=== PATIENT | female | born 1975 ===

== ENCOUNTER 2021-09-27 11:03 | Day surgery (SDC) | payer OTHER ==
--- NOTE | 2021-09-26 10:50 | Anesthesia Consultation ---
Anesthesia Consult and Med Hx Date of service: 09/26/21 - Airway Anesthetic Teeth Evaluation: Good ROM Head & Neck: Adequate Mental/Hyoid Distance: Adequate Mallampati Class: Class II Intubation Access Assessment: Good - Pulmonary Exam CTA: Yes - Cardiac Exam Cardiac Exam: RRR - Pre-Operative Health Status ASA Pre-Surgery Classification: ASA1 Proposed Anesthetic Plan: General - Central Nervous System Hx Psychiatric Problems: No - Other Systems Hx Alcohol Use: Yes (Occas) Hx Cancer: No
[2021-09-26 11:06] LABS: Basophils % (Auto) 0.8 % (0.0-1.8); Eosinophils # (Auto) 0.1 K/mm3 (0.0-0.4); Eosinophils % (Auto) 2.2 % (0.0-4.3); Hematocrit 41.5 % (30.3-42.9); Hemoglobin 14.1 gm/dl (10.1-14.3); Lymphocytes # (Auto) 1.2 K/mm3 (1.2-5.4); Lymphocytes % (Auto) 26.6 % (13.4-35.0); Mean Corpuscular HGB Conc 34 % (30-34); Mean Corpuscular Volume 91 fl (79-97); Monocytes # (Auto) 0.3 K/mm3 (0.0-0.8); Monocytes % (Auto) 6.6 % (0.0-7.3); Platelet Count 293 K/mm3 (140-440); Red Blood Count 4.55 M/mm3 (3.65-5.03); Red Cell Distribution Width 12.4 % (13.2-15.2)
--- NOTE | 2021-09-27 09:44 | Anesthesia Day of Surgery ---
Anesthesia Day of Surgery - Day of Surgery Patient Examined: Yes Patient H&P Reviewed: Yes Patient is NPO: Yes
[~2021-09-27 11:03] MED LIST: ACETAMINOPHEN 500 MG TAB PO SCH; BUPIVACAINE/PF (0.5%) 5 MG/1 ML 10 ML VIAL INFILTRATI NR; CELECOXIB 200 MG CAP PO NR; GABAPENTIN 300 MG CAP PO NR; HYDROmorphone 1 MG/1 ML INJ IV PRN; HYDROmorphone 1 MG/1 ML INJ ONE; LACTATED RINGERS 1,000 ML IV SCH; LACTATED RINGERS 1000 ML IV SOLN IV ONE; LIDOCAINE MPF (2%) 20 MG/1 ML VIAL 5 ML ONE; MIDAZOLAM 2 MG/2 ML INJ IV NR; ONDANSETRON 4 MG/2 ML INJ IV PRN; ROCURONIUM 50 MG/5 ML INJ IV ONE; SCOPOLAMINE TRANSDERMAL PATCH 72 HR TD NR; ceFAZolin/STERILE WATER 2 GM/20 ML SYRINGE IV NR; ceFAZolin/Water 2 GM/20 ML 2 GM/20 ML SYRINGE IV ONE; dexAMETHasone 20 MG/5 ML VIAL ONE; fentaNYL 100 MCG/2 ML INJ IV NR; methOCARBAMOL 1,000 MG in SODIUM CHLORIDE 0.9% 250ML 250 ML IV SCH; propofoL 200 MG/20 ML VIAL IV ONE
[2021-09-27] MEDS ORDERED: WATER FOR IRRIG STERILE 2000 ML IR ONE (11:06)
[2021-09-27] MEDS ORDERED: SODIUM CHLORIDE 0.9% IRR 1,500 ML BOTTLE IR ONE (11:06)
--- NOTE | 2021-09-27 12:02 | Procedure Note ---
Date of procedure: 09/27/21 Pre-op diagnosis: intraabdominal adhesions Post-op diagnosis: same Procedure: laparoscopic lysis of adhesions Findings: Intraaoperative consult called by Dr. Noel. Patient with history of lower midline incision for abdominal surgery. Patient scheduled for laparoscopic hysterectomy. Patient with intraabdominal adhesions. Consult called to assist with lysis of adhesions. 12mm Rodrigues umbilical port and RLQ 5 mm port already placed. Omental adhesions identified to anterior abdominal wall in mid and lower abdomen. I performed lysis of adhesions using lap enseal device. After LUANN completed, omentum examined and hemostasis ensured. No injury was identified to the intraabdominal organs. Dr. Noel resumed his portion of the case at this time. Anesthesia: GRACE Surgeon: PRABHU WHITNEY Estimated blood loss: minimal Condition: stable Disposition: no change
[2021-09-27] MEDS ORDERED: ROCURONIUM 50 MG/5 ML INJ IV ONE (12:13)
[2021-09-27] MEDS ORDERED: LACTATED RINGERS 1,000 ML ONE (12:15)
[2021-09-27] MEDS ORDERED: NEOSTIGMINE 10MG/10 ML INJ MDV ONE (13:11)
[2021-09-27] MEDS ORDERED: GLYCOPYRROLATE 0.4 MG/2 ML INJ ONE (13:11)
[2021-09-27] MEDS ORDERED: ONDANSETRON 4 MG/2 ML INJ ONE (13:11)
[2021-09-27] MEDS ORDERED: KETOROLAC 30 MG/1 ML INJ ONE (13:12)
--- NOTE | 2021-09-27 13:33 | History and Physical Report ---
History of Present Illness Date of examination: 09/27/21 Date of admission: Chief complaint: Abnormal uterine bleeding x 6 months. History of present illness: Endometrial biopsy was benign. Patient declined management with hormones. . 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 ) - Obstetrical History : 4 Para: 4 Medications and Allergies Allergies Allergy/AdvReac Type Severity Reaction Status Date / Time No Known Allergies Allergy Unverified 09/23/21 12:57 Home Medications Medication Instructions Recorded Confirmed Last Taken Type No Known Home Medications [No 09/23/21 09/23/21 Unknown History Reported Home Medications] Active Meds: Active Medications Acetaminophen (Acetaminophen 500 Mg Tab) 1,000 mg PO PREOP BORIS Stop: 09/27/21 20:00 Last Admin: 09/27/21 09:18 Dose: 1,000 mg Celecoxib (Celecoxib 200 Mg Cap) 200 mg PO PREOP NR Stop: 09/27/21 20:00 Last Admin: 09/27/21 09:17 Dose: 200 mg Gabapentin (Gabapentin 300 Mg Cap) 300 mg PO PREOP NR Stop: 09/27/21 20:00 Last Admin: 09/27/21 09:19 Dose: 300 mg Hydromorphone HCl (Hydromorphone 1 Mg/1 Ml Inj) 0.5 mg IV Q10MIN PRN PRN Reason: Pain , Severe (7-10) Stop: 09/27/21 20:00 Lactated Ringer's (Lactated Ringers) 1,000 mls @ 100 mls/hr IV DIRECT BORIS Last Admin: 09/27/21 09:21 Dose: 100 mls/hr Methocarbamol 1,000 mg/ Sodium (Chloride) 260 mls @ 250 mls/hr IV PREOP BORIS Stop: 09/27/21 20:00 Midazolam HCl (Midazolam 2 Mg/2 Ml Inj) 2 mg IV PREOP NR Stop: 09/27/21 20:00 Last Admin: 09/27/21 10:00 Dose: 2 mg Scopolamine (Scopolamine Transdermal Patch 72 Hr) 1 each TD PREOP NR Stop: 09/27/21 20:00 Last Admin: 09/27/21 09:17 Dose: 1 each Review of Systems All systems: negative Genitourinary: vaginal bleeding - Vital Signs Vital signs: Vital Signs Temp Pulse Resp BP Pulse Ox 98.5 F 69 20 147/90 98 09/26/21 10:40 09/26/21 10:40 09/26/21 10:40 09/26/21 10:40 09/26/21 10:40 Temp Pulse Resp BP Pulse Ox 98.3 F 65 18 138/68 98 09/27/21 08:45 09/27/21 08:45 09/27/21 10:03 09/27/21 08:45 09/27/21 08:45 - Physical Exam Breasts: Positive: deferred Cardiovascular: Normal S1, Normal S2 Lungs: Positive: Normal air movement Abdomen: Positive: normal appearance, soft, normal bowel sounds. Negative: tenderness Vulva: both: normal Vagina: Positive: normal moisture. Negative: discharge Cervix: Negative: lesion, discharge Adnexa: both: normal Anus/Rectum: Positive: normal perianal skin, heme negative. Negative: rectal mass, hemorrhoids Extremities: Deep Tendon Reflex Grade: Normal +2 Results Result Diagrams: 09/26/21 Unknown All other labs normal. Assessment and Plan - Patient Problems (1) Abnormal uterine bleeding (AUB) Current Visit: Yes Status: Acute Plan to address problem: For LAVH/cystoscopy.
--- NOTE | 2021-09-27 13:38 | Operative Report ---
Operative Report Operative Report: Date of surgery: 09/27/2021 Admitting diagnosis: Abnormal uterine bleeding Postoperative diagnoses: Same. Extensive peritoneal adhesions. Procedure: Laparoscopically assisted vaginal hysterectomy, cystoscopy. Surgeon: Cyndie Noel MD Anesthesiologist: Radha Finley MD Anesthesia: Gen. anesthesia EBL: 200 mL Complications: None Findings:Intraperitoneally, the left fallopian tube and ovary were noted to have been removed at a prior surgical session. There were extensive adhesions involving the greater omentum to the anterior parietal peritoneum. The right ovary was grossly normal. The uterus was normal in size. The liver on the undersurface of the diaphragm were grossly normal. There were no other abnormalities observed within the peritoneal cavity. The vulva vagina and cervix were grossly normal. Procedure in details: The patient was taken to the operating room and was given a general anesthesia. The patient was then put in the lithotomy position and prepped in the vulva vagina and abdomen. The drapes were placed. A timeout was done. With the go ahead from the [facility] administrator, an indwelling Kunz catheter was inserted. The cervix was stabilized with a single-tooth tenaculum forceps and an acorn,. At the navel, a stab incision was made. The Veress needle was inserted, making sure to point the tip of this instrument into the free hollow of the pelvis. The Veress needle was initially aspirated and no blood was drawn. The Veress needle was then flushed through with a small quantity of sterile normal saline without any resistance. The general peritoneal cavity was thereafter insufflated with 3.5 L of carbon dioxide. A 5 mm port with its trocar were inserted making sure again to point the tip of this instrument towards the free hollow of the pelvis. The laparoscope confirmed successful access to the peritoneal cavity subsequently. Due to the poor visibility, the Rodrigues port was used after bluntly breaking down adhesions around the mid lower abdomen. Further adhesions were divided with the assistance of general surgeon . 2 additional 5 mm ports were placed one for each flank under guidance with the laparoscope. A general examination of the peritoneal cavity was done. The findings are reported above. The endoscopic Enseal was used to excise the remnants of the fallopian tubes from its attachments to the ovaries all the way to the uterine cornua. The broad ligament was then divided from the round ligaments and close to the lateral aspects of the uterus all the way to the top of the cervix. This was done for both sides. The J-hook Bovie was used to thermally coagulate the utero peritoneal flap over the cervix. This allowed the bladder to be displaced distally with the blunt probe. The procedure continued vaginally. The acorn cannula was removed. A circumferential incision was made into the nucleus sharp on the external cervix distal to the palpated reflection of the urinary bladder. The bladder was then bluntly dissected off of the cervix using the Kitner. The anterior colpotomy was easily established, retractors replaced within the opening. The posterior colpotomy was established by cutting into the posterior cul-de-sac with the Seymour's scissors. The blade of the weighted vaginal speculum was placed into the posterior colpotomy. The Enseal was then used to thermally coagulate and divide the remaining attachments of the uterus to the pelvic sidewall. Specimen was removed and secured for histopathology. The vagina was sewn with a running suture of #0 Vicryl having achieved satisfactory hemostasis. The vagina vault was subsequently closed with figure of 8 suture of 0 Vicryl. Cystoscopy was done. The patient was given 50 mg of methylene blue. Both ureteric orifices were seen with urine ejecting from both. The urine was clear. There was no injuries to the bladder wall. Intraperitoneally, there was no extravasation of urine into the peritoneal cavity. There was no bleeding within the peritoneal cavity. The pneumoperitoneum was deflated after inspecting the access points using the laparoscope. All instruments were withdrawn. The 3 incisions were closed with #0 Vicryl. All sponges and instruments were accounted for. There were no complications. The estimated blood loss was 200 mL. The patient tolerated the procedure well and was transferred to the recovery room in very good condition.
[2021-09-27] MEDS ORDERED: SODIUM CHLORIDE 0.9% IRRIG SOLN 2000 ML IR ONE (13:47)
[2021-09-27] MEDS ORDERED: oxyCODONE /ACETAMINOPHEN 5-325MG TAB PO PRN (14:10)
[2021-09-27] MEDS ORDERED: ONDANSETRON 4 MG/2 ML INJ IV PRN (14:27)
[2021-09-27 15:07] VITALS: BP 112/68
--- NOTE | 2021-09-27 15:24 | Post Anesthesia Evaluation ---
- Post Anesthesia Evaluation Patient Participated: Yes Airway Patent: Yes Stable Respiratory Function: Yes Nausea/Vomiting: No Temp > 96.8F: Yes Pain Manageable: Yes Adequeate Hydration: Yes Anesthesia Complications: No
== END 2021-09-27 15:30 | disposition home or self-care (01) ==
LOC: OR 11:03
PROVIDERS: ATTEND Obstetrics & Gynecology
DX: N93.8 Other specified abnormal uterine and vaginal bleeding (principal); K66.0 Peritoneal adhesions (postprocedural) (postinfection); D25.9 Leiomyoma of uterus, unspecified; Q50.4 Embryonic cyst of fallopian tube; N85.8 Other specified noninflammatory disorders of uterus; Z98.890 Other specified postprocedural states
CPT/HCPCS: 36415; 52000; 58552; 84703; 85025; 86850; 86900; 86901; 88307; J0690; J1100; J1170; J1815; J1885; J2250; J2405; J2704; J2710; J2800; J3490; J7050; J7120